=== PATIENT | male | born 1970 | race Caucasian/White ===

== ENCOUNTER 2021-04-14 09:54 | Outpatient (REF) | payer OTHER, SELFPAY ==
[2021-04-14 11:22] LABS: Anion Gap 12 (12-20); Blood Urea Nitrogen 13 mg/dL (9-16); Carbon Dioxide 26 mmol/L (22-29); Chloride 106 mmol/L (96-108); Estimated Glomerular Filt Rate > 60; Potassium 4.3 mmol/L (3.3-5.1); Sodium 140 mmol/L (135-145)
== END 2021-04-14 09:55 | disposition home or self-care (01) ==
LOC: HO.10HDL 09:54
PROVIDERS: Visit Provider Family Medicine
DX: I10 Essential (primary) hypertension (principal)
CPT/HCPCS: 36415; 80051; 82565; 84520

== ENCOUNTER 2023-02-14 10:40 | Outpatient (REF) | payer OTHER, SELFPAY ==
[2023-02-14 13:53] LABS: Anion Gap 12 (12-20); Blood Urea Nitrogen 14 mg/dL (9-16); Carbon Dioxide 26 mmol/L (22-29); Chloride 107 mmol/L (96-108); Estimated Glomerular Filt Rate > 60; Potassium 4.7 mmol/L (3.3-5.1); Sodium 140 mmol/L (135-145)
== END 2023-02-14 10:41 | disposition home or self-care (01) ==
LOC: HO.10HDL 10:40
PROVIDERS: Visit Provider Family Medicine
DX: I10 Essential (primary) hypertension (principal)
CPT/HCPCS: 36415; 80051; 82565; 84520

== ENCOUNTER 2023-02-27 14:46 | Outpatient (REF) | payer OTHER, SELFPAY ==
--- NOTE | 2023-02-27 | PFT_ITS ---
FLOWS: 1. FEV1 81% of predicted at 2.94 L. 2. FVC 74% of predicted at 3.50 L. 3. FEV1 to FVC ratio of 0.84. 4. No bronchodilator response except in small to medium airways. LUNG VOLUMES: 1. Total lung capacity 80% of predicted at 5.30 L. 2. Residual volume 95% of predicted at 1.87 L. 3. Slow vital capacity 75% of predicted at 3.53 L. 4. Expiratory reserve volume 18% of predicted at 0.25 L. 5. Diffusion capacity is normal. IMPRESSION: No obstructive or restrictive ventilatory defect. No bronchodilatory response except in small to medium airways. Decreased expiratory reserve volume suggests extrathoracic restriction likely secondary to abdominal obesity. MD KELLY Lemus/MODL / [id number]
== END 2023-02-27 14:47 | disposition home or self-care (01) ==
LOC: HO.RESP 14:46
PROVIDERS: PCP Family Medicine; Visit Provider Family Medicine
DX: R06.02 Shortness of breath (principal); E66.01 Morbid (severe) obesity due to excess calories
CPT/HCPCS: 94060; 94727; 94729

== ENCOUNTER 2023-06-20 07:44 | Outpatient (REF) | payer OTHER, SELFPAY ==
--- NOTE | ~2023-06-20 | XR_ITS ---
EXAMINATION: XR CHEST CLINICAL INFORMATION: Cough COMPARISON: None available. TECHNIQUE: 2 views of the chest were obtained. FINDINGS: Visualization limited due to body habitus. No gross pleural effusion. There is no gross pneumothorax. Heart size is normal. Mild degenerative changes in the thoracic spine. No focal consolidation to suggest pneumonia. XR/XR chest 2V IMPRESSION: No evidence of pneumonia.
[2023-06-20 10:36] LABS: MANUAL DIFF FLAG NO
[2023-06-20 10:49] LABS: Basophils Absolute Auto 0.1 X10*3/uL (0.0-0.2); Basophils Percent Auto 0.8 % (0-2); Eosinophils Absolute Auto 0.1 X10*3/uL (0.0-0.4); Eosinophils Percent Auto 2.2 % (0-4); Hemoglobin 14.7 g/dl (14.0-18.0); Imm Gran Abs Auto 0.03 X10*3/uL (0.00-0.03); Imm Gran Pct Auto 0.5 % (0.0-0.4); Lymphocytes Absolute Auto 1.9 X10*3/uL (1.2-4.9); Lymphocytes Percent Auto 29.6 % (20-40); Mean Corpuscular HGB Conc 33.4 g/dl (31.0-36.0); Mean Corpuscular Hemoglobin 31.7 pg (27.0-33.0); Mean Platelet Volume 10.9 fL (9.4-12.4); Monocytes Percent Auto 15.2 % (2-11); Neutrophils Absolute Auto 3.2 x10*3/uL (2.0-8.3); Neutrophils Percent Auto 51.7 % (45-73); Platelet Count 227 X10*3/uL (160-400); Red Blood Count 4.63 X10*6/uL (4.60-5.80); Red Cell Distribution Width 13.1 % (11.0-16.0); White Blood Count 6.3 X10*3/uL (4.8-10.8)
[2023-06-20 11:15] LABS: Estimated Average Glucose 94 mg/dL; Hemoglobin A1c % 4.9 %
[2023-06-20 11:19] LABS: Alanine Aminotransferase 31 U/L (0-40); Alkaline Phosphatase 45 U/L (39-117); Anion Gap 10 (12-20); Aspartate Amino Transferase 17 U/L (5-37); Bilirubin Total 0.6 mg/dL (0.0-1.0); Blood Urea Nitrogen 13 mg/dL (9-16); Calcium 8.9 mg/dL (8.4-10.2); Carbon Dioxide 26 mmol/L (22-29); Chloride 108 mmol/L (96-108); Estimated Glomerular Filt Rate > 60; Glucose Fasting 112 mg/dL (60-99); Potassium 3.9 mmol/L (3.3-5.1); Sodium 140 mmol/L (135-145); Thyroid Stimulating Hormone 1.61 uIU/mL (0.32-4.0); Total Protein 6.7 g/dL (6.5-8.0)
== END 2023-06-20 07:45 | disposition home or self-care (01) ==
LOC: HO.10HDL 07:44
PROVIDERS: PCP Family Medicine; Visit Provider Family Medicine
DX: R05.9 Cough, unspecified (principal); R06.02 Shortness of breath; I10 Essential (primary) hypertension; G62.9 Polyneuropathy, unspecified; E66.9 Obesity, unspecified; R73.9 Hyperglycemia, unspecified
CPT/HCPCS: 36415; 71046; 80053; 83036; 84443; 85025

== ENCOUNTER 2023-07-19 12:52 | Day surgery (SDC) | payer OTHER, SELFPAY ==
--- NOTE | 2023-07-18 10:33 | HO.ANESPROP2 ---
Documented by User: Elsi Jeffries NP 07/18/23 10:34 HPI - Anesthesia Eval Consult details Narrative: 53yo M for Colonoscopy [facility] Past Medical History Medical History (Updated 07/18/23 @ 09:47 by Jennifer Lau RN) HTN (hypertension) ANNA on CPAP Surgical History Surgical History (Updated 07/19/23 @ 13:49 by Jennifer Lau RN) Hx of appendectomy Social History Social History Patient Tobacco Use Status: Never used Tobacco Are you DNR?: No Advance Directives: No Advance Directives Information Provided: Yes Meds Allergies Allergy/AdvReac Type Severity Reaction Status Date / Time No Known Allergies Allergy Verified 07/18/23 09:48 Home Medications Medication Instructions Recorded Confirmed Last Taken Type lisinopril 10 mg tablet 10 mg PO DAILY 07/18/23 07/18/23 Unknown History Exam Exam Date and Time: July 18, 2023 103 Pertinent Lab Results Pertinent Lab Results: Laboratory Tests 06/20/23 06/20/23 07:50 07:50 WBC 6.3 Hgb 14.7 Hct 44.0 Plt Count 227 Sodium 140 Potassium 3.9 Chloride 108 Carbon Dioxide 26 BUN 13 Creatinine 0.85 Assessment and Plan Assessment Anesthesia Assessment: Chart Reviewed Documented by User: Flor Slater MD 07/19/23 13:58 [facility] Past Medical History Medical History (Updated 07/18/23 @ 09:47 by Jennifer Lau RN) HTN (hypertension) ANNA on CPAP Family History Family history of problems with anesthesia: No Surgical History Surgical History (Updated 07/19/23 @ 13:49 by Jennifer Lau RN) Hx of appendectomy History of Problems with Anesthesia: No Social History Social History Patient Tobacco Use Status: Never used Tobacco Are you DNR?: No Advance Directives: No Advance Directives Information Provided: Yes Meds Allergies Allergy/AdvReac Type Severity Reaction Status Date / Time No Known Allergies Allergy Verified 07/18/23 09:48 Home Medications Medication Instructions Recorded Confirmed Last Taken Type lisinopril 10 mg tablet 10 mg PO DAILY 07/18/23 07/18/23 Unknown History Exam Airway Mallampati Class: II TM Dist: >3cm Neck ROM: Full Heart: rrr Lungs: cta Assessment and Plan Assessment Anesthesia Assessment: Anesthesia Plan Discussed Final Anesthetic Review Family History of Problems with Anesthesia: No History of Problems with Anesthesia: No NPO: Yes ASA Class: III (supermorbid obesity) Final Preanesthetic Review: No Changes in Pt Med Stat, Meds/Allgs Chart Reviewed, Consent Obtained/Reviewed and Anes Risks/Benef Reviewed Patient Risk: Intermediate Procedure Risk: Low Anesthetic Plan Anesthetic Plan: MAC: Disposition: Standard PACU
[2023-07-19 13:40] VITALS: BP 166/81; PULSE 83; RESP 20; TEMP 36.1; O2SAT 97; BMI 45.8
--- NOTE | 2023-07-19 13:45 | ECG_ITS ---
Test Reason : Irregular arrythmia Blood Pressure : / mmHG Vent. Rate : 084 BPM Atrial Rate : 084 BPM P-R Int : 144 ms QRS Dur : 088 ms QT Int : 384 ms P-R-T Axes : 045 084 001 degrees QTc Int : 453 ms Sinus rhythm with occasional Premature ventricular complexes Otherwise normal ECG No previous ECGs available Referred By: Tylor Rider Electronically Signed By:JAVIER ERICKSON
[2023-07-19] MEDS: Lactated Ringers 1,000 ML 100 ML IVCONT (13:51)
--- NOTE | 2023-07-19 14:37 | P.HPSUR_ITS ---
Pre-Procedural Eval Section A Date of Service: 07/19/23 Section B Chief Complaint: Encounter for screening for malignant neoplasm of Details of Present Illness: see H&P no changes Relevant Family History (Specify if Yes): No Relevant Social History: None Present Medications: see Short Stay Collaborative assessment Medical History: No relevant PMH Allergies: Allergies Allergy/AdvReac Type Severity Reaction Status Date / Time No Known Allergies Allergy Verified 07/18/23 09:48 Review of Systems Sugical H&P ROS: Negative: Constitution, Cardiovascular, Respiratory, Neurological, Psychiatric, Hem-Onc, Allergic/Immunologic, Gastrointestinal, Genitourinary, Musculoskeletal, Integumentary, Endocrine and Eyes/Ears/Nose/Throat Exam Surgical H&P Exam: Normal: HEENT, Normal: Heart, Normal: Lungs, Normal: Extremi ties, Normal: Abdomen, Normal: Skin and Normal: Neurological Plan Diagnosis/Plan: Unchanged I have reviewed the history and physical and performed a pertinent physical examination on my patient. No changes have occurred unless specified. Time Spent With Patient Time: Total time managing care of this patient today ____ minutes.
--- NOTE | 2023-07-19 15:17 | PM.OP ---
Brief Operative Note Date of Service: 07/19/23 Pre-op diagnosis: screening Post-op diagnosis: same Procedure: colonoscopy Surgeon: Thomas Wick Was an Hangersmith used for this Procedure?: No Estimated blood loss (mL): 2 Pathology: other Condition: stable Disposition: PACU
[2023-07-19 15:25] VITALS: BP 134/64; PULSE 91; RESP 20; TEMP 36.6; O2SAT 96
[2023-07-19 15:40] VITALS: BP 124/64; PULSE 77; RESP 20; O2SAT 97
[2023-07-19 15:55] VITALS: BP 117/69; PULSE 75; RESP 20; TEMP 36.6; O2SAT 97
[2023-07-19 15:56] LABS: Anion Gap 14 (12-20); Carbon Dioxide 22 mmol/L (22-29); Chloride 107 mmol/L (96-108); Potassium 3.9 mmol/L (3.3-5.1); Sodium 139 mmol/L (135-145)
[2023-07-19 16:10] VITALS: BP 122/67; PULSE 81; RESP 20; TEMP 36.6; O2SAT 97
--- NOTE | 2023-07-20 04:52 | OP_ITS ---
DATE OF SERVICE: 07/19/2023 SURGEON: Thomas Wick MD INDICATIONS: Colon cancer screening. PREOPERATIVE DIAGNOSIS: POSTOPERATIVE DIAGNOSIS: PROCEDURE PERFORMED: Colonoscopy to the terminal ileum with biopsy. ESTIMATED BLOOD LOSS: COMPLICATIONS: ANESTHESIA: Monitored anesthesia care. ASSISTANTS: SPECIMENS: DESCRIPTION OF PROCEDURE: History and physical performed. The risks and benefits of the procedure were explained to the patient. Informed consent was obtained. The patient was placed in the left lateral decubitus position. A digital rectal exam was performed and was found to be normal. The Olympus pediatric video colonoscope was introduced into the rectum and advanced to the cecum. The cecum was identified by transillumination, palpation, and identification of ileocecal valve. Examination was performed. The scope was removed. He tolerated the procedure well and was returned to the recovery area in stable condition. FINDINGS: The terminal ileum was examined and appeared normal. The visualized colonic mucosa was normal. The quality of the prep was good. In the right colon was a less than 5 mm sessile polyp, which was removed with biopsy forceps. In the rectum, there were multiple less than 10 mm hyperplastic appearing polyps (approximately 12-15). Multiple biopsies were obtained from the polyps, as they did appear to be hyperplastic. Retroflexed examination showed some small internal hemorrhoids. IMPRESSION: Colon polyps. RECOMMENDATION: Follow up the biopsy results. MD FRANCES Clark/ORQUIDEAL / [id number]
== END 2023-07-19 16:44 | disposition home or self-care (01) ==
PROVIDERS: Anesthesiology; PCP Family Medicine; Visit Provider Internal Medicine Gastroenterology
PROC: 0DJD8ZZ Inspection of Lower Intestinal Tract, Via Natural or Artificial Opening Endoscopic (ICD-10-PCS; CPT 45378; principal; 2023-07-19 14:20)
DX: Z12.11 Encounter for screening for malignant neoplasm of colon (principal); K62.1 Rectal polyp; K63.5 Polyp of colon; K64.8 Other hemorrhoids; I10 Essential (primary) hypertension; G47.33 Obstructive sleep apnea (adult) (pediatric); Z99.89 Dependence on other enabling machines and devices; Z79.899 Other long term (current) drug therapy
CPT/HCPCS: 45380; 36415; 80051; 88305; 93005

== ENCOUNTER 2024-07-02 16:45 | Outpatient (REF) | payer OTHER, SELFPAY ==
[2024-07-02 17:57] LABS: Anion Gap 12 (12-20); Blood Urea Nitrogen 11 mg/dL (9-16); Carbon Dioxide 28 mmol/L (22-29); Chloride 105 mmol/L (96-108); Estimated Glomerular Filt Rate > 60; Potassium 4.6 mmol/L (3.3-5.1); Sodium 140 mmol/L (135-145)
[2024-07-02 18:19] LABS: Prostate Specific Antigen 0.67 ng/mL (<0.05-4.0)
== END 2024-07-02 16:46 | disposition home or self-care (01) ==
LOC: HO.LAB 16:45
PROVIDERS: PCP Family Medicine; Visit Provider Family Medicine
DX: I10 Essential (primary) hypertension (principal); R35.1 Nocturia; Z12.5 Encounter for screening for malignant neoplasm of prostate
CPT/HCPCS: 36415; 80051; 82565; 84153; 84520

== ENCOUNTER 2025-08-18 13:51 | Outpatient (REF) | payer OTHER, SELFPAY ==
[2025-08-18 15:01] LABS: MANUAL DIFF FLAG NO
[2025-08-18 15:29] LABS: Hematocrit 45.4 % (42.0-52.0); Hemoglobin 16.1 g/dl (14.0-18.0); Imm Gran Abs Auto 0.04 X10*3/uL (0.00-0.03); Imm Gran Pct Auto 0.5 % (0.0-0.4); Lymphocytes Absolute Auto 2.0 X10*3/uL (1.2-4.9); Mean Corpuscular HGB Conc 35.5 g/dl (31.0-36.0); Mean Corpuscular Hemoglobin 32.2 pg (27.0-33.0); Mean Corpuscular Volume 90.8 fL (80.0-98.0); NRBC Abs Auto 0.000 X10*3/uL (0.0-0.012); NRBC Pct Auto 0.0 /100WBC (0.0-0.2); Platelet Count 225 X10*3/uL (160-400); Red Blood Count 5.00 X10*6/uL (4.60-5.80); White Blood Count 8.0 X10*3/uL (4.8-10.8)
[2025-08-18 15:43] LABS: Hemoglobin A1C 144.0026 umol/L
[2025-08-18 16:07] LABS: Alanine Aminotransferase 29 U/L (0-40); Albumin Level 4.7 g/dL (3.5-5.0); Alkaline Phosphatase 54 U/L (39-117); Anion Gap 12 (12-20); Aspartate Amino Transferase 27 U/L (5-37); Blood Urea Nitrogen 11 mg/dL (9-16); Calcium 9.5 mg/dL (8.4-10.2); Carbon Dioxide 25 mmol/L (22-29); Chloride 107 mmol/L (96-108); Cholesterol 197 mg/dL (<200); Estimated Glomerular Filt Rate > 60; HDL Cholesterol 55 mg/dL (>40); Potassium 4.0 mmol/L (3.3-5.1); Sodium 140 mmol/L (135-145); Total Protein 7.2 g/dL (6.5-8.0); Triglycerides 195 mg/dL (<150)
[2025-08-19 13:02] LABS: Syphilis Screen Nonreactive (Nonreactive)
[2025-08-19 13:46] LABS: HBS Num1 0.38 mIU/mL (0-7.99); HBc Num1 0.04 S/CO (0.00-0.79); HBsAGNum1 0.46 S/CO (0.00-0.99); HIV Num 1 0.04 S/CO (0.00-0.99); Hepatitis A Antibody IgM 0.22 Index (0-0.79); Hepatitis B Surface Antigen Negative (Negative); ~HepC Num1 0.10 S/CO (0.00-0.79); ~Hepatitis A Antibody IgM Nonreactive (Nonreactive); ~Hepatitis B Surface Antibody NONREACTIVE (Nonreactive); ~Hepatitis C Antibody Nonreactive (Nonreactive)
== END 2025-08-18 13:52 | disposition home or self-care (01) ==
LOC: HO.LAB 13:51
PROVIDERS: PCP Family Medicine; Visit Provider Student in an Organized Health Care Education/Training Program
DX: I10 Essential (primary) hypertension (principal); E66.813 Obesity, class 3; E66.1 Drug-induced obesity; G47.33 Obstructive sleep apnea (adult) (pediatric); F10.10 Alcohol abuse, uncomplicated; Z68.42 Body mass index [BMI] 45.0-49.9, adult
CPT/HCPCS: 36415; 80053; 80061; 82306; 83036; 84443; 85025; 86704; 86706; 86709; 86780; 86803; 87340; 87389; 96127

== ENCOUNTER 2025-08-18 13:51 | Outpatient (AMB) | payer OTHER, SELFPAY ==
--- NOTE | 2025-08-18 13:56 | A.OFFPC_ITS ---
Vital Signs 08/18/25 14:03 Height 5 ft 8 in Weight 324 lb BMI 49.3 BP 146/96 H Blood Pressure Location Lt brachial Position Sitting Respiration 18 Pulse 76 Pulse Source Pulse Oximeter Temp 97.8 F Temp Source Temporal Artery Scan Pulse Oximetry (%) 97 Oxygen Delivery Method Room Air Intake Visit Reasons: Routine/ Dr Quevedo Kettle Loader Required: No Accompanied by: Self / Same As Patient Allergies No Known Allergies Allergy (Verified 08/18/25 13:56) Tobacco use date assessed: 08/18/25 Dental Screening Dental Screen Date: 08/18/25 Did you have a dental visit in the last 12 months?: Yes Did you have a dental problem in the last 6 months where you did not have access to dental care?: No Was dental information given to patient?: Patient has dentist HPI HPI Comments History of Present Illness Details The patient is a 55-year-old male presenting with the management and follow-up of hypertension, sleep apnea, and weight concerns. The patient has a known history of essential hypertension, currently managed with lisinopril 10 mg. He reports that his blood pressure readings at home have been consistently higher, with today's clinic reading at 146/96 mmHg. There is a concern regarding the long-term control of hypertension and the need to maintain blood pressure under 140 mmHg. The patient further reports suffering from sleep apnea, which is currently managed with the use of a CPAP machine. He describes compliance with the CPAP therapy but has ongoing challenges with weight management that may be exacerbating his condition. The patient is struggling with obesity, noting fluctuating weight patterns. There have been considerations for newer obesity treatments, but concerns about insurance coverage and potential side effects like pancreatitis and thyroid pro blems delay such interventions. The patient?s struggles with weight have persisted for years, with noted difficulties in maintaining a consistent weight loss regimen. He acknowledges high alcohol intake, with consumption of 5 to 6 drinks once or twice a week, which is contributing to his weight and blood pressure challenges, and represents a borderline high-risk behavior for other health complications. Medical History: - Essential Hypertension - Sleep Apnea - Obesity Surgical History: - No past surgeries Medications: - Lisinopril 10 mg once daily for hypert ension Family History: - Father and mother both from l lara cancer, with a history of heavy smoking - No known family history of diabetes or heart disease Social: - Lives in [place] and reports a stable a nd safe living environment - Denies smoking history - Consumes alcohol 5 to 6 drinks once or twice weekly - Reports a preference for physical acti vity but struggles with structured weight management - Diet includes high-caliber foods; stru ggles with cutting processed and fast foods from diet [facility] Medical History (Updated 08/18/25 @ 14:38 by Juancho Rothman MD) Alcohol abuse Obesity HTN (hypertension) ANNA on CPAP Surgical History (Updated 08/15/25 @ 16:03 by Emma Milton) History of colonoscopy (~07/20/23) Hx of appendectomy Social History Housing: House Patient Tobacco Use Status: Never used Tobacco e-Cigarette/Vaping Use: Never Used Second Hand Smoke Exposure: Yes service: Yes Current occupational status: employed and retired Current occupation: part [employer] Questionnaire PHQ-9 Over the last 2 weeks, how often have you been bothered by any of the following problems? 1. Little interest or pleasure in doing things: not at all 2. Feeling down, depressed, or hopeless: not at all 3. Trouble falling or staying asleep, or sleeping too much: not at all 4. Feeling tired or having little energy: not at all 5. Poor appetite or overeating: not at all 6. Feeling bad about yourself - or that you are a failure or have let yourself or your family down: not at all 7. Trouble concentrating on things, such as reading the newspaper or watching television: not at all 8. Moving or speaking so slowly that other people could have noticed. Or the opposite - being so fidgety or restless that you have been moving around a lot more than usual: not at all 9. Thoughts that you would be better off or of hurting yourself in some way: not at all Total score: 0 Depression Screening Interpretation: Positive Depression Screening Done: Yes 42819 - PHQ-9 Billing: Yes Source: Developed by Drs. Juan Benoit, Johanna Reyes, Richard Silva and colleagues, with an educational dayna from [employer]. Thrive Questionnaire Date Thrive assessed: 08/18/25 I am a: Patient What is your living situation today?: I have a steady place to live Within the past 12 months, did the food you bought not last and you didn't have the money to get more?: Never true Within the past 12 months, did you worry whether your food would run out before you got money to buy more?: Never true Do you have trouble paying for medicines?: No Do you have trouble getting transportation to medical appointments?: No Do you have trouble paying your heating and electricity bill?: No Do you have trouble taking care of your child, family member or friend?: No Do you have trouble with day-to-day activities such as bathing, preparing meals, shopping, managing finances, etc.?: No Are you currently unemployed and looking for a job?: No Are you interested in more education?: No THRIVE Score: 0 AUDIT C Alcohol Use Questionnaire (AUDIT-C) 1. How often do you have a drink containing alcohol?: 2-4 times a month 2. How many drinks containing alcohol do you have on a typical day when you are drinking?: 5 or 6 3. How often do you have six or more drinks on one occasion?: Less than monthly Total Score: 5 Score Reviewed/Action Taken: Yes DAVEY-7 AMB Questionnaire DAVEY-7 Date DAVEY - 7 assessed: 08/18/25 Feeling nervous, anxious, or on edge: 0 = Not at all Not being able to stop or control worryin = Not at all Worrying too much about different things: 0 = Not at all Trouble relaxin = Not at all Being so restless that it is hard to sit still: 0 = Not at all Becoming easily annoyed or irritable: 0 = Not at all Feeling afraid as if something awful might happen: 0 = Not at all Total DAVEY-7 score (0-4 normal; 5-9 mild; 10-14 moderate; 15-21 severe): 0 Source: Developed by Drs. Juan Benoit, Johanna Reyes, Richard Silva and colleagues, with an educational dayna from [employer]. DAVEY-7 Assessment Billing DAVEY-7 Assessment Tool: DAVEY-7 Assessment 21521 Review of Systems Const Details: - Cardiovascular: Reports stable blood pressure management; recent readings slightly elevated - Respiratory: Denies chest pain, cough; reports managed sleep apnea - Gastrointestinal: Denies nausea, vomiting; reports regular bowel movements - Neurological: Denies headaches, dizziness - Psychiatric: Denies depression, anxiety, or feelings of worthlessness All systems reviewed & are unremarkable except as reviewed in HPI and above Physical exam (Primary Care) Vital Signs: Last Vital Signs Temp 97.8 F 08/18/25 14:03 Pulse 76 08/18/25 14:03 Resp 18 08/18/25 14:03 BP 146/96 H 08/18/25 14:03 Pulse Ox 97 08/18/25 14:03 Oxygen Delivery Method Room Air 08/18/25 14:03 BMI result Body Mass Index 49.3 Tobacco/Smoking Status: Tobacco use Status Tobacco use date assessed 08/18/25 08/18/25 13:58 Patient Tobacco Use Status Never used Tobacco 08/18/25 13:58 e-Cigarette/Vaping Use Never Used 08/18/25 14:07 PHQ-9: PHQ-9 Score PHQ-9: Total score 0 08/18/25 14:20 Depression Screening Interpretation: Positive Thrive Assessment: Date of Thrive Assessment Date Thrive assessed 08/18/25 08/18/25 14:20 Const Other: General: +Alert and oriented, Well nourished, No acute distress. Eye: Pupils are equal, round and reactive to light, Intact accommodation, Extraocular movements are intact, Normal conjunctiva, Vision unchanged. HENT: Normocephalic, Atraumatic, Tympanic membranes are clear, Normal hearing, Oral mucosa is moist, No pharyngeal erythema, Ear canals patent. Respiratory: Lungs CTA bilaterally, No wheeze, Respirations are non-labored. Cardiovascular: Regular rate, Regular rhythm, S1 auscultated, S2 auscultated, No murmur, Good pulses equal in all extremities, Normal peripheral perfusion, No edema. Gastrointestinal: Soft, Non-tender, Non-distended, Normal bowel sounds, No organomegaly. Musculoskeletal: Normal range of motion, Normal strength, No tenderness, No swelling, No deformity, Normal gait. Integumentary: Warm, Dry, Colon, Intact. Neurologic: Alert, Oriented, Normal sensory, Normal motor function, No focal defects, Cranial Nerves II-XII are grossly intact, Normal deep tendon reflexes. Psychiatric: Cooperative, Appropriate mood & affect, Normal judgment. Mood is stable, no signs of depression or anxiety. Coding Level of Care Code New Pt Level 4 (76183) Diagnoses Primary hypertension I10 Hypertension type: primary hypertension ANNA on CPAP G47.33 Class 3 drug-induced obesity with serious comorbidity and body mass index (BMI) of 45.0 to 49.9 in adult E66.813; E66.1; Z68.42 Body mass index: BMI 45.0-49.9 Obesity classification: adult class 3 (BMI >= 40) Obesity type: drug-induced Serious obesity comorbidity presence: with serious comorbidity Alcohol abuse F10.10 Additional Codes DAVEY-7 Assessment Billing - DAVEY-7 Assessment Tool: DAVEY-7 Assessment 62771 ([id number]) PHQ-9 - 92658 - PHQ-9 Billing: Yes ([id number]) Assessment & Plan Assessment & Plan (1) HTN (hypertension): Comment: - Plan to continue monitoring blood pressure and adjust medication if necessary (Continue Lisinopril 10mg Daily) - Advised on reducing alcohol intake to manage blood pressure better - Blood work ordered to evaluate general health status, including thyroid, vitamin D levels, and cholesterol Code(s): I10 - Essential (primary) hypertension Category: Medical Qualifiers: Hypertension type: primary hypertension Qualified Code(s): I10 - Essential (primary) hypertension (2) ANNA on CPAP: Comment: - Continue use of CPAP - Reinforced the need for weight management as part of sleep apnea and hypertension management Code(s): G47.33 - Obstructive sleep apnea (adult) (pediatric) Category: Medical (3) Obesity: Comment: - Discussed the need for lifestyle modifications including diet and exercise - Planned follow-up in three months to evaluate weight management efforts and decide further interventions - Blood work to rule out thyroid dysfunction affecting weight Code(s): E66.9 - Obesity, unspecified Category: Medical Qualifiers: Body mass index: BMI 45.0-49.9 Obesity classification: adult class 3 (BMI >= 40) Obesity type: drug-induced Serious obesity comorbidity presence: with serious comorbidity Qualified Code(s): E66.813 - Obesity, class 3; E66.1 - Drug-induced obesity; Z68.42 - Body mass index [BMI] 45.0-49.9, adult (4) Alcohol abuse: Comment: - Discussed health risks associated with high alcohol intake, particularly liver and renal function and blood pressure impact (AUDIT C elevated to 5) - Recommended reducing intake and frequency Code(s): F10.10 - Alcohol abuse, uncomplicated Category: Social Hx Plan: Health maintenance: - Recommended reducing alcohol consumption - Advised dietary changes and increased physical activity for weight management - Blood work ordered to check cholesterol, thyroid function, vitamin D, and glucose levels Patient was informed and verbally consented to the use of an ambient scribe for clinic note documentation during this visit. Plan During the visit, I discussed with the patient the management of his hypertension and emphasized the importance of maintaining his blood pressure under 140 mmHg. The potential impact of his alcohol intake on blood pressure and overall health was reviewed, and reductions were advised. We discussed his sleep apnea and the need for continued CPAP use, alongside lifestyle changes for weight management. The patient expressed concerns about newer obesity medications concerning insurance coverage and side effects. I explained our approach to first attempting lifestyle modifications, reinforcing the need for dietary changes and increased physical activity. Follow-up was planned for three months to assess progress. Blood work was ordered to rule out any complicating factors like thyroid dysfunction affecting weight. Orders: Orders Comprehensive Met. Panel Today I10 - Essential (primary) hypertension Hemoglobin A1c Today I10 - Essential (primary) hypertension Lipid Panel Today I10 - Essential (primary) hypertension Syphilis Screen Today I10 - Essential (primary) hypertension TSH reflex Free T4 Today I10 - Essential (primary) hypertension Complete Blood Count Auto Diff Today I10 - Essential (primary) hypertension Hepatitis A,B,C Profile Today I10 - Essential (primary) hypertension HIV Ab/Ag Today I10 - Essential (primary) hypertension Vitamin D 25-OH Total Today I10 - Essential (primary) hypertension Patient Instructions: - Take lisinopril 10 mg daily as prescribed for hypertension. - Use your CPAP machine regularly for sleep apnea management. - Reduce alcohol to no more than 2-3 drinks on any occasion. - Increase physical activity and remove processed and fast foods from your diet. - Have your blood work done at the hospital today. - Return for a follow-up appointment in three months to assess progress.
[2025-08-18 14:03] VITALS: BP 146/96; PULSE 76; RESP 18; TEMP 36.6; O2SAT 97; BMI 49.3
== END 2025-08-18 14:33 | disposition home or self-care (01) ==
LOC: HO.HMCHD 13:52
PROVIDERS: PCP Student in an Organized Health Care Education/Training Program; Visit Provider Student in an Organized Health Care Education/Training Program
DX: I10 Essential (primary) hypertension (principal); G47.33 Obstructive sleep apnea (adult) (pediatric); E66.813 Obesity, class 3; E66.1 Drug-induced obesity; Z68.42 Body mass index [BMI] 45.0-49.9, adult; F10.10 Alcohol abuse, uncomplicated

== ENCOUNTER 2025-11-18 07:57 | Outpatient (AMB) | payer OTHER, SELFPAY ==
--- NOTE | 2025-11-18 08:01 | A.OFFPC_ITS ---
Vital Signs 11/18/25 08:02 Height 5 ft 8 in Weight 291 lb 2 oz BMI 44.3 BP 122/80 Blood Pressure Location Lt brachial Position Sitting Respiration 16 Pulse 78 Pulse Source Pulse Oximeter Temp 97.1 F Temp Source Temporal Artery Scan Pulse Oximetry (%) 97 Oxygen Delivery Method Room Air Intake Visit Reasons: 3 month f/u, weight loss f/u ? meds Safety Inspector Required: No Accompanied by: Self / Same As Patient Allergies No Known Allergies Allergy (Verified 11/18/25 08:01) Medication List - Last Reconciled 11/18/25 by Juancho Rothman MD atorvastatin (Lipitor) 20 mg PO BEDTIME 90 days cholecalciferol (vitamin D3) 1,250 mcg PO QWEEK 12 weeks lisinopril 10 mg PO DAILY 90 days semaglutide (weight loss) (Wegovy) 1 mg (0.5 mL) subcut QWEEK Tobacco use date assessed: 08/18/25 Dental Screening Dental Screen Date: 08/18/25 HPI HPI Comments History of Present Illness Details History of Present Illness The patient is a 55 year old male presenting for follow-up on weight management. He has lost 33 pounds over the last 3 months while taking Wegovy, with his weight dropping from 324 lbs to 291 lbs and his BMI dropping from 49 to 44. He is currently on the 1 mg dose and requires a refill. Regarding side effects from Wegovy, the patient reports he vomited after the first two doses but not with subsequent doses. He currently experiences occasional stomach pain and burping, but reports his appetite has not been completely killed. The patient reports a history of hypertension, which is now well-controlled on lisinopril 10 mg. He also takes atorvastatin 20 mg for hypercholesterolemia. He has a history of obstructive sleep apnea and uses a CPAP machine, which he has used for many years. His thyroid function was noted to be good. Socially, the patient reports being more active, including walking up to 7 miles a day during a recent vacation. He has reduced his alcohol consumption to approximately once per week socially. He previously worked 80 hours a week and had poor eating habits, but is now semi-retired. Medical History: - Obesity - Hypertension - Hypercholesterolemia - Obstructive sleep apnea, on CPAP Medications: - Wegovy 1 mg for weight management - Lisinopril 10 mg for hypertension - Atorvastatin 20 mg for hypercholestero lemia Diagnostic Results: - Weight: 291 lbs (decreased from 324 lb s) - BMI: 44 (decreased from 49) - Labs: Thyroid function reported as goo d. Social History - Substance Use: Reports drinking alcoho l socially approximately once a week. - Exercise: Reports being active and wal lnea daily, including up to seven miles a day while on vacation. He plans to start lifting weights. - Employment: He is semi-retired. Tomás mckeon worked two jobs for 30 years, totaling 80 hours a week. - Nutrition: Reports a history of poor e ating habits due to his previous work schedule. - Weight Management: Has lost 33 pounds in 3 months with the use of Wegovy. [facility] Medical History (Updated 11/18/25 @ 08:19 by Juancho Rothman MD) Mixed hyperlipidemia Alcohol abuse Obesity HTN (hypertension) ANNA on CPAP Surgical History (Updated 08/15/25 @ 16:03 by Emma Milton) History of colonoscopy (~07/20/23) Hx of appendectomy Social History Housing: House Patient Tobacco Use Status: Never used Tobacco e-Cigarette/Vaping Use: Never Used Second Hand Smoke Exposure: Yes service: Yes Current occupational status: employed and retired Current occupation: part [employer] Questionnaire Thrive Questionnaire Date Thrive assessed: 08/18/25 AUDIT C Alcohol Use Questionnaire (AUDIT-C) 1. How often do you have a drink containing alcohol?: Monthly or less 2. How many drinks containing alcohol do you have on a typical day when you are drinking?: 1 or 2 3. How often do you have six or more drinks on one occasion?: Never Total Score: 1 DAVEY-7 AMB Questionnaire DAVEY-7 Date DAVEY - 7 assessed: 08/18/25 Source: Developed by Drs. Juan Benoit, Johanna Reyes, Richard Silva and colleagues, with an educational dayna from [email or web address]. Review of Systems Narrative Review of Systems - General: Reports feeling better and has experienced significant weight loss. - Gastrointestinal: Reports occasional stomach pain and eructation. Appetite is reduced but not absent. He denies constipation. History of vomiting with initial doses of Wegovy. - Respiratory: Reports sleeping better and denies snoring. He uses a CPAP machine. All systems reviewed & are unremarkable except as reviewed in HPI and above Physical exam (Primary Care) Vital Signs: Last Vital Signs Temp 97.1 F 11/18/25 08:02 Pulse 78 11/18/25 08:02 Resp 16 11/18/25 08:02 BP 122/80 11/18/25 08:02 Pulse Ox 97 11/18/25 08:02 Oxygen Delivery Method Room Air 11/18/25 08:02 BMI result Body Mass Index 44.3 Tobacco/Smoking Status: Tobacco use Status Tobacco use date assessed 08/18/25 11/18/25 08:06 Patient Tobacco Use Status Never used Tobacco 11/18/25 08:06 e-Cigarette/Vaping Use Never Used 11/18/25 08:06 Thrive Assessment: Date of Thrive Assessment Date Thrive assessed 08/18/25 11/18/25 08:06 Narrative Physical Exam General: +Alert and oriented, Well nourished, No acute distress. Eye: Pupils are equal, round and reactive to light, Intact accommodation, Extraocular movements are intact, Normal conjunctiva, Vision unchanged. HENT: Normocephalic, Atraumatic, Tympanic membranes are clear, Normal hearing, Oral mucosa is moist, No pharyngeal erythema, Ear canals patent. Respiratory: Lungs CTA bilaterally, No wheeze, Respirations are non-labored. Cardiovascular: Regular rate, Regular rhythm, S1 auscultated, S2 auscultated, No murmur, Good pulses equal in all extremities, Normal peripheral perfusion, No edema. Gastrointestinal: Soft, Non-tender, Non-distended, Normal bowel sounds, No organomegaly, Occasional stomach discomfort. Musculoskeletal: Normal range of motion, Normal strength, No tenderness, No swelling, No deformity, Normal gait. Integumentary: Warm, Dry, [place], Intact. Neurologic: Alert, Oriented, Normal sensory, Normal motor function, No focal defects, Cranial Nerves II-XII are grossly intact, Normal deep tendon reflexes. Psychiatric: Cooperative, Appropriate mood & affect, Normal judgment. Coding Level of Care Code Est Pt Level 4 (84893) Add On Problem Visit Only Diagnoses Class 3 drug-induced obesity with serious comorbidity and body mass index (BMI) of 45.0 to 49.9 in adult E66.813; E66.1; Z68.42 Body mass index: BMI 45.0-49.9 Obesity classification: adult class 3 (BMI >= 40) Obesity type: drug-induced Serious obesity comorbidity presence: with serious comorbidity Primary hypertension I10 Hypertension type: primary hypertension Mixed hyperlipidemia E78.2 ANNA on CPAP G47.33 Assessment & Plan Assessment & Plan (1) Obesity: Comment: - The patient has responded well to Wegovy, with a 33-pound weight loss in 3 months. - He is tolerating the 1 mg dose with only mild gastrointestinal side effects. - Plan is to continue the current Wegovy 1 mg dose, as he is still losing weight. - Dose will be titrated up only if weight loss stalls. - He was counseled on starting weightlifting to preserve muscle mass. - He was also advised on preventing constipation by increasing fluid intake and using Miralax if needed. - A refill for Wegovy was provided. Code(s): E66.9 - Obesity, unspecified Category: Medical Qualifiers: Body mass index: BMI 45.0-49.9 Obesity classification: adult class 3 (BMI >= 40) Obesity type: drug-induced Serious obesity comorbidity presence: with serious comorbidity Qualified Code(s): E66.813 - Obesity, class 3; E66.1 - Drug-induced obesity; Z68.42 - Body mass index [BMI] 45.0-49.9, adult (2) HTN (hypertension): Comment: - Blood pressure is now well-controlled, likely due to significant weight loss. - Plan is to continue lisinopril 10 mg daily. - The possibility of discontinuing this medication with further weight loss was discussed. - A refill for lisinopril was provided. Code(s): I10 - Essential (primary) hypertension Category: Medical Qualifiers: Hypertension type: primary hypertension Qualified Code(s): I10 - Essential (primary) hypertension (3) Mixed hyperlipidemia: Comment: - The patient is managed on atorvastatin. - Plan is to continue atorvastatin 20 mg daily. - A refill was provided. Code(s): E78.2 - Mixed hyperlipidemia Category: Medical (4) ANNA on CPAP: Comment: - The patient continues to use his CPAP machine. - Discussed that continued weight loss and a reduction in neck circumference may lead to the resolution of his sleep apnea. - No change in current management is planned. Code(s): G47.33 - Obstructive sleep apnea (adult) (pediatric) Category: Medical Plan: Health Maintenance - Weight Management: Patient has lost 33 lbs in 3 months, with his BMI decreasing from 49 to 44. - Exercise: Advised to begin lifting weights to maintain muscle mass. Patient reports being active and walking daily. - Substance Use: Counseled on alcohol, with patient reporting reduced intake to once weekly. - Monitoring: Plan to follow up in 3 months and check thyroid function. Patient was informed and verbally consented to the use of an ambient scribe for clinic note documentation during this visit. Plan I reviewed the patient's excellent progress with weight loss, noting a 33-pound decrease in 3 months on Wegovy. We discussed his side effects, which have improved, and I explained that we will continue the current 1 mg dose as long as he is achieving results and will only increase the dose if his weight loss stalls. I strongly recommended he start weightlifting to preserve muscle mass and advised him to maintain good hydration and use Miralax if he develops constipation. I noted that his blood pressure control has improved significantly and he may be able to come off his blood pressure medication with further weight loss. Refills for Wegovy, lisinopril, and atorvastatin were sent to the pharmacy. I instructed him to follow up in 3 months, at which time we will recheck his thyroid function. The patient verbalized understanding of the plan. Medications: Refilled semaglutide (weight loss) (Wegovy) administer weeks 9 through 12 of therapy 1 mg (0.5 mL) subcut QWEEK 2 mL 0RF E66.1 - Drug-induced obesity, E66.813 - Obesity, class 3, G47.33 - Obstructive sleep apnea (adult) (pediatric), Z68.42 - Body mass index [BMI] 45.0-49.9, adult Patient Instructions: - Continue taking your Wegovy 1 mg once a week. - Continue taking your lisinopril 10 mg daily for blood pressure. - Continue taking atorvastatin 20 mg daily for cholesterol. - We have sent refills for all your medications to your pharmacy. - Start lifting weights to help maintain your muscle as you lose weight. - Drink plenty of fluids. If you get constipated, you can use an whoo-fgu-whytsvy medication like MiraLax. - Please schedule a follow-up appointment in 3 months. - We will check your thyroid levels at your next visit.
[2025-11-18 08:02] VITALS: BP 122/80; PULSE 78; RESP 16; TEMP 36.2; O2SAT 97; BMI 44.3
== END 2025-11-18 08:17 | disposition home or self-care (01) ==
LOC: HO.HMCHD 07:57
PROVIDERS: PCP Family Medicine; Visit Provider Student in an Organized Health Care Education/Training Program
DX: E66.813 Obesity, class 3 (principal); E66.1 Drug-induced obesity; Z68.42 Body mass index [BMI] 45.0-49.9, adult; I10 Essential (primary) hypertension; E78.2 Mixed hyperlipidemia; G47.33 Obstructive sleep apnea (adult) (pediatric)